=== PATIENT | female | born 1945 | race Caucasian/White ===

== ENCOUNTER 2020-11-30 17:20 | Inpatient (IN) | payer MEDICARE, OTHER ==
[~2020-11-30] VITALS: Ht 160 cm; Wt 78.1 kg
[2020-12-01 03:04] LABS: HEMOGLOBIN 9.2 gm/dl (12.3-15.3); RED BLOOD COUNT 3.23 M/UL (4.00-5.10); WHITE BLOOD COUNT 5.2 K/UL (4.5-11.0)
[2020-12-01] MEDS ORDERED: ATORVASTATIN CA80 MG PO (11:45)
[2020-12-01] MEDS ORDERED: HYDRALAZINE HCL50 MG PO (11:45)
[2020-12-01] MEDS ORDERED: OMEPRAZOLE40 MG PO (11:46)
[2020-12-01] MEDS ORDERED: PROZAC 20 MG CA20 MG PO (11:47)
[2020-12-01] MEDS ORDERED: TRAZODONE HCL100 MG PO (11:50)
[2020-12-01] MEDS ORDERED: ISOSORBIDE MON120 MG PO (11:51)
[2020-12-01] MEDS ORDERED: CREON DR 24,001 EACH PO (11:52)
[2020-12-01] MEDS ORDERED: LOSARTAN POTAS100 MG PO (11:52)
--- NOTE | 2020-12-01 23:36 | NUR ---
REPORT GIVEN TO [facility]. PATIENT STABLE AT THIS TIME. IV SITE IS CDI. OXYGEN INFUSING AT 4L VIA NC. JIMÉNEZ DRAINING TO BEDSIDE WITH CLEAR URINE. PATIENT TRANSFERRED BY BED WITH ASSIST OF STAFF.
[2020-12-02 04:19] LABS: HEMOGLOBIN 8.6 gm/dl (12.3-15.3); RED BLOOD COUNT 3.01 M/UL (4.00-5.10)
[2020-12-02 04:23] LABS: WHITE BLOOD COUNT 7.4 K/UL (4.5-11.0)
[2020-12-03 05:52] LABS: HEMOGLOBIN 8.9 gm/dl (12.3-15.3); RED BLOOD COUNT 3.16 M/UL (4.00-5.10); WHITE BLOOD COUNT 6.9 K/UL (4.5-11.0)
[2020-12-04 05:25] LABS: HEMOGLOBIN 8.7 gm/dl (12.3-15.3); RED BLOOD COUNT 3.01 M/UL (4.00-5.10); WHITE BLOOD COUNT 6.8 K/UL (4.5-11.0)
[2020-12-05 05:58] LABS: HEMOGLOBIN 8.5 gm/dl (12.3-15.3); WHITE BLOOD COUNT 6.1 K/UL (4.5-11.0)
[2020-12-05 11:14] LABS: HBSAG SCREEN Negative (Negative); HEP B CORE AB, TOT Negative (Negative); HEP C VIRUS AB <0.1 (0.0-0.9)
[2020-12-05 13:14] LABS: ANTISTREPTOLYSIN O AB 37.6 IU/mL (0.0-200.0); COMPLEMENT C3, SERUM 106 mg/dL (82-167); COMPLEMENT C4, SERUM 21 mg/dL (12-38)
[2020-12-05 15:14] LABS: ANTI-DSDNA ANTIBODIES <1 IU/mL (0-9)
[2020-12-05 16:14] LABS: A/G RATIO 1.1 (0.7-1.7); ALBUMIN 2.4 g/dL (2.9-4.4); ALPHA-1-GLOBULIN 0.2 g/dL (0.0-0.4); ALPHA-2-GLOBULIN 0.7 g/dL (0.4-1.0); ATYPICAL PANCA <1:20 titer (Neg:<1:20); BETA GLOBULIN 0.9 g/dL (0.7-1.3); CYTOPLASMIC (C-ANCA) <1:20 titer (Neg:<1:20); GAMMA GLOBULIN 0.6 g/dL (0.4-1.8); GLOBULIN, TOTAL 2.3 g/dL (2.2-3.9); IMMUNOGLOBULIN A, QN, SERUM 361 mg/dL (64-422); IMMUNOGLOBULIN G, QN, SERUM 594 mg/dL (586-1602); IMMUNOGLOBULIN M, QN, SERUM 63 mg/dL (26-217); M-SPIKE Not Observed g/dL (Not Observed); PERINUCLEAR (P-ANCA) <1:20 titer (Neg:<1:20); PROTEIN, TOTAL, SERUM 4.7 g/dL (6.0-8.5)
[2020-12-07 05:28] LABS: HEMOGLOBIN 7.8 gm/dl (12.3-15.3); RED BLOOD COUNT 2.76 M/UL (4.00-5.10); WHITE BLOOD COUNT 6.3 K/UL (4.5-11.0)
[2020-12-08 03:42] LABS: HEMOGLOBIN 8.5 gm/dl (12.3-15.3); RED BLOOD COUNT 2.89 M/UL (4.00-5.10); WHITE BLOOD COUNT 6.7 K/UL (4.5-11.0)
[2020-12-10 03:11] LABS: HEMOGLOBIN 8.1 gm/dl (12.3-15.3); RED BLOOD COUNT 2.86 M/UL (4.00-5.10); WHITE BLOOD COUNT 6.3 K/UL (4.5-11.0)
[2020-12-10 10:43] LABS: HEMOGLOBIN 8.9 gm/dl (12.3-15.3); RED BLOOD COUNT 3.11 M/UL (4.00-5.10)
[2020-12-10 10:49] LABS: WHITE BLOOD COUNT 8.5 K/UL (4.5-11.0)
[2020-12-11 06:03] LABS: HEMOGLOBIN 8.2 gm/dl (12.3-15.3); RED BLOOD COUNT 2.88 M/UL (4.00-5.10)
--- NOTE | 2020-12-11 15:46 | NUR ---
DOBUTAMINE CHANGED FROM 24.4ML/HR TO 12ML/HR. PT B/P PRESENTLY 180/63. MD CALLED WITH NO ANSWER, WILL CONTINUE TO CALL
[2020-12-12 03:41] LABS: HEMOGLOBIN 8.1 gm/dl (12.3-15.3); RED BLOOD COUNT 2.84 M/UL (4.00-5.10); WHITE BLOOD COUNT 6.1 K/UL (4.5-11.0)
[2020-12-15 03:03] LABS: HEMOGLOBIN 8.1 gm/dl (12.3-15.3); RED BLOOD COUNT 2.85 M/UL (4.00-5.10); WHITE BLOOD COUNT 5.4 K/UL (4.5-11.0)
--- NOTE | 2020-12-15 16:53 | NUR ---
12/15/2020 @ 0659 THE PATIENTS DAUGHTER (AL), HAD FELL IN THE FLOOR SEVERAL TIMES THORUGHOUT THE NIGHT AND FIRST THING WHEN I ARRIVED TO MY SHIFT. I HEARD A NOISE COMING FOR THE [facility]. WHEN I ENTERED THE ROOM THE DAUGTHER (AL) WAS GETTING UP OFF THE FLOOR AND STATED THAT "I FELL A COUPLE TIMES DURING THE NIGHT BUT THAT IS NORMAL BECAUSE I HAVE MS". THE PATIENT ALREADY HAD AN ICEPACK FROM THE NIGHT AND WAS ICING HER SHOULDER AND ELBOW. I ASKED THE PATIENT IF SHE WOULD LIKE TO GO TO THE ER BUT SHE STATED SHE DID NOT AND WAS OK. I CALLED [employer] SPONGE MAKING MACHINE OPERATOR (JANE GONZALEZ, SELVIN GIPSON) AND INFORMED THEM OF THE SITUTION. I WAS INFORMED TO TELL THE PATIENT SHE NEEDED TO GO HOME DUE TO HER FALLING AND HER SAFETY BEING OF CONCERN DUE TO HER NOT BEING A PATIENT OF THIS FACILITY. I ASKED MET[employer] SPONGE MAKING MACHINE OPERATOR IF THEY WOULD COME UP AND ADDRESS THAT WITH THE DAUGHTER (AL), TO WHICH WAS STATED I CAN ADDRESS THE PROBLEM AND IF SHE GOT UPSET THEY WOULD "HAVE MY BACK". I WAS ALSO INFORMED TO CALL THE PATIENTS FAMILY TO COME AND CASE MANAGEMENT COORDINATOR THE DAUGHTER (AL) AND IF THE FAMILY DID NOT ANSWER TO CALL THEM BACK.
--- NOTE | 2020-12-15 17:06 | NUR ---
12/15/2020 @ 0710 MYSELF AND THE NIGHTSHIFT RN WENT IN TO ADDRESS THE DAUGHTER ABOUT GOING HOME PER HOUSE SUPERVISORS REQUEST DUE TO HER FALLING SEVERAL TIMES AND HER BEING A SAFETY CONCERN. THE DAUGHTER STATED SHE FALLS ALL THE TIME AND SHE COULD NOT LEAVE HER MOTHER. WE INFORMED THE DAUGHTER SHE NEEDED FAMILY TO PICK HER UP AND WE COULD MAKE THAT PHONE CALL FOR HER. AGAIN, SHE STATED SHE WOULD NOT LEAVE. DURING THE CONVERSATION, THE DAUGHTER OPENED UP HER ICEPACK AND DUMPED ALL THE WATER DOWN HER SHIRT,LEGS, AND IN THE FLOOR. WHEN ASKED TO NOT OPEN TO ICEPACK AND DUMP WATER OUT, THE DAUGHTER STATED THE BAG WAS NEVER OPEN, SHE DIDNT OPEN IT AND DIDNT KNOW HOW THE WATER GOT IN THE FLOOR. I EXITED THE ROOM TO CALL THE DAUGHTERS FATHER TO COME PICK HER UP. THE FATHER NEVER ANSWERED WITH EITHER NUMBER NOR MADE AN ATTMEPT TO CALL BACK. WINCH DERRICK OPERATOR WAS CALLED BACK TO INFORM THEM THE FATHER DID NOT ANSWER AND THE PATIENT WAS NOT LEAVING. WINCH DERRICK OPERATOR SAID I DONE ALL I COULD DO AND THE DAUGHTER WAS NOT A PATIENT AND I COUDLNT WATCH HER ALL DAY AND THERE WAS NO RESOURCES FOR ANYONE ELSE TO WATCH THE DAUGHTER EITHER.
[2020-12-16 03:36] LABS: HEMOGLOBIN 8.7 gm/dl (12.3-15.3); RED BLOOD COUNT 3.06 M/UL (4.00-5.10); WHITE BLOOD COUNT 6.4 K/UL (4.5-11.0)
--- NOTE | 2020-12-16 15:35 | NUR ---
PHYSICAL THERAPY ATTEMPTED TO GET PATIENT OUT OF BED. SHE REFUSED AND STATES SHE WILL GET UP WHEN SHE FEELS LIKE IT. PATIENT FAMILY MEMBER AT BEDSIDE ENCOURAGED PATIENT TO GET UP, PATIENT YELLED AT HER SAYING SHE COULDNT MAKE HER.
[2020-12-17 02:59] LABS: RED BLOOD COUNT 3.1 M/UL (4.00-5.10); WHITE BLOOD COUNT 7.4 K/UL (4.5-11.0)
--- NOTE | 2020-12-17 16:54 | NUR ---
PT RECIEVED TEACHING FOR [employer]. PT AND FAMILY STATES THAT IT HELPED.
[2020-12-18] MEDS ORDERED: BUMETANIDE1 MG PO (10:21)
[2020-12-18] MEDS ORDERED: FERROUS SULFAT325 M2 PO (10:21)
[2020-12-18] MEDS ORDERED: MEGACE TAB 40 M40 MG PO (10:21)
[2020-12-18] MEDS ORDERED: ASPIRIN EC81 MG PO (10:21)
[2020-12-18] MEDS ORDERED: CARVEDILOL12.5 MG PO (10:21)
[2020-12-18] MEDS ORDERED: RANEXA500 MG PO (10:21)
== END 2020-12-18 15:23 | DRG 280 ==
LOC: PROG CARE 17:20 → MED SURG 4 17:20 → PROG CARE 12-11 14:33
PROVIDERS: Internal Medicine; Internal Medicine Cardiovascular Disease; Internal Medicine Infectious Disease; Internal Medicine Nephrology; Physician Assistant; ADMIT Internal Medicine
PROC: 5A09357 Assistance with Respiratory Ventilation, Less than 24 Consecutive Hours, Continuous Positive Airway Pressure (ICD-10-PCS; 2020-11-30)
PROC: B24BZZZ Ultrasonography of Heart with Aorta (ICD-10-PCS; 2020-12-02)
PROC: 4A023N7 Measurement of Cardiac Sampling and Pressure, Left Heart, Percutaneous Approach (ICD-10-PCS; principal; 2020-12-12)
PROC: B211YZZ Fluoroscopy of Multiple Coronary Arteries using Other Contrast (ICD-10-PCS; 2020-12-12)
PROC: 4A033BC Measurement of Arterial Pressure, Coronary, Percutaneous Approach (ICD-10-PCS; 2020-12-12)
DX: I21.4 Non-ST elevation (NSTEMI) myocardial infarction (principal); I50.23 Acute on chronic systolic (congestive) heart failure; J96.22 Acute and chronic respiratory failure with hypercapnia; J96.21 Acute and chronic respiratory failure with hypoxia; I13.0 Hypertensive heart and chronic kidney disease with heart failure and stage 1 through stage 4 chronic kidney disease, or unspecified chronic kidney disease; N17.9 Acute kidney failure, unspecified; I16.1 Hypertensive emergency; I47.2 Ventricular tachycardia; E87.2 Acidosis; J44.1 Chronic obstructive pulmonary disease with (acute) exacerbation; Z20.822 Contact with and (suspected) exposure to COVID-19; I25.119 Atherosclerotic heart disease of native coronary artery with unspecified angina pectoris; E83.42 Hypomagnesemia; N18.30 Chronic kidney disease, stage 3 unspecified; I25.5 Ischemic cardiomyopathy; D50.9 Iron deficiency anemia, unspecified; F32.9 Major depressive disorder, single episode, unspecified; E11.22 Type 2 diabetes mellitus with diabetic chronic kidney disease; R15.9 Full incontinence of feces; I44.7 Left bundle-branch block, unspecified; E66.01 Morbid (severe) obesity due to excess calories; D63.1 Anemia in chronic kidney disease; R32 Unspecified urinary incontinence; E78.5 Hyperlipidemia, unspecified; K21.9 Gastro-esophageal reflux disease without esophagitis; Z85.6 Personal history of leukemia; Z88.2 Allergy status to sulfonamides; Z88.0 Allergy status to penicillin; Z79.899 Other long term (current) drug therapy; Z90.710 Acquired absence of both cervix and uterus; Z87.891 Personal history of nicotine dependence; Z95.5 Presence of coronary angioplasty implant and graft; Z68.26 Body mass index [BMI] 26.0-26.9, adult
CPT/HCPCS: ECHO; 36415; 36600; 71045; 71250; 80048; 80053; 81001; 82436; 82550; 82553; 82570; 82728; 82784; 82803; 82962; 83520; 83540; 83550; 83735; 83880; 83883; 83935; 84100; 84133; 84155; 84156; 84165; 84300; 84439; 84443; 84484; 85025; 85027; 85045; 85652; 86038; 86060; 86140; 86160; 86162; 86225; 86256; 86334; 86704; 86706; 86708; 86803; 87340; 89050; 93005; 93306; 94640; 94660; 94664; 94760; 97110; 97110-GP-CQ; 97116-GP-CQ; 97162; 97166; C1769; C1894; J0360; J1205; J1250; J1644; J1756; J1940; J2250; J2270; J3475; J7030; J7040; J7070; Q5106; Q9965; U0002

== ENCOUNTER 2021-02-25 15:11 | Inpatient (IN) | payer MEDICARE, OTHER ==
[~2021-02-25] VITALS: Ht 157.5 cm; Wt 73.0 kg
[~2021-02-25 15:11] MED LIST: ASPIRIN EC81 MG PO; ATORVASTATIN CA80 MG PO; BUMETANIDE1 MG PO; CARVEDILOL12.5 MG PO; CREON DR 24,001 EACH PO; FERROUS SULFAT325 M2 PO; HYDRALAZINE HCL50 MG PO; ISOSORBIDE MON120 MG PO; LOSARTAN POTAS100 MG PO; MEGACE TAB 40 M40 MG PO; OMEPRAZOLE40 MG PO; PROZAC 20 MG CA20 MG PO; RANEXA500 MG PO; TRAZODONE HCL100 MG PO
[2021-02-25 17:43] LABS: HEMOGLOBIN 8.9 gm/dl (12.3-15.3); RED BLOOD COUNT 2.95 M/UL (4.00-5.10); WHITE BLOOD COUNT 7.5 K/UL (4.5-11.0)
--- NOTE | 2021-03-01 15:08 | NUR ---
DRESSING CHANGE PERFORMED ORDERED TO PATIENT'S BACK. PATIENT TOLERATED WELL. PINK, HEALTHY APPEARING TISSUE NOTED TO WOUND.
[2021-03-03] MEDS ORDERED: OMEPRAZOLE40 MG PO (15:19)
[2021-03-03] MEDS ORDERED: FERROUS SULFAT325 M2 PO (15:19)
[2021-03-05] MEDS ORDERED: DOXYCYCLINE HY100 MG PO (11:31)
--- NOTE | 2021-03-05 17:37 | NUR ---
CALLED REPORT TO [facility] AT 16:19. GAVE REPORT TO
== END 2021-03-05 17:14 | DRG 264 ==
LOC: ER1 15:11 → CDU 18:48 → MED SURG 4 18:48 → M/S 18:48 → MED SURG 4 03-01 18:07
PROVIDERS: Emergency Medicine; ADMIT Internal Medicine
PROC: 0JB70ZZ Excision of Back Subcutaneous Tissue and Fascia, Open Approach (ICD-10-PCS; principal; 2021-02-26)
DX: I96 Gangrene, not elsewhere classified (principal); L89.103 Pressure ulcer of unspecified part of back, stage 3; I50.42 Chronic combined systolic (congestive) and diastolic (congestive) heart failure; I13.0 Hypertensive heart and chronic kidney disease with heart failure and stage 1 through stage 4 chronic kidney disease, or unspecified chronic kidney disease; N17.9 Acute kidney failure, unspecified; I47.2 Ventricular tachycardia; E11.51 Type 2 diabetes mellitus with diabetic peripheral angiopathy without gangrene; Z20.822 Contact with and (suspected) exposure to COVID-19; L89.151 Pressure ulcer of sacral region, stage 1; Z79.899 Other long term (current) drug therapy; I25.10 Atherosclerotic heart disease of native coronary artery without angina pectoris; Z88.0 Allergy status to penicillin; Z87.891 Personal history of nicotine dependence; E88.09 Other disorders of plasma-protein metabolism, not elsewhere classified; I25.5 Ischemic cardiomyopathy; E11.22 Type 2 diabetes mellitus with diabetic chronic kidney disease; E11.65 Type 2 diabetes mellitus with hyperglycemia; Z98.61 Coronary angioplasty status; I44.7 Left bundle-branch block, unspecified; N18.30 Chronic kidney disease, stage 3 unspecified; D50.9 Iron deficiency anemia, unspecified; K52.9 Noninfective gastroenteritis and colitis, unspecified; M19.90 Unspecified osteoarthritis, unspecified site; R53.81 Other malaise; E78.5 Hyperlipidemia, unspecified; Z85.6 Personal history of leukemia; Z90.710 Acquired absence of both cervix and uterus; Z79.82 Long term (current) use of aspirin; Z83.3 Family history of diabetes mellitus; Z82.49 Family history of ischemic heart disease and other diseases of the circulatory system; I27.20 Pulmonary hypertension, unspecified; H91.90 Unspecified hearing loss, unspecified ear
CPT/HCPCS: 36415; 71045; 72128; 80048; 80053; 80202; 81001; 82550; 82553; 82962; 83036; 83540; 83550; 83735; 83874; 83880; 84439; 84443; 84484; 85018; 85025; 85610; 85730; 86140; 87040; 93005; 94760; 96374; 97110; 97110-GP-CQ; 97116-GP-CQ; 97162; 97166; 97530-GP-CQ; 99285; J0692; J1650; J3370; J7030; J7070; U0002

== ENCOUNTER 2021-07-08 16:52 | Inpatient (IN) | payer MEDICARE, OTHER ==
[~2021-07-08] VITALS: Ht 160 cm; Wt 76.2 kg
[~2021-07-08 16:52] MED LIST changes: +DOXYCYCLINE HY100 MG PO
[2021-07-09] MEDS ORDERED: NITROSTAT 0.40.4 MG SL (01:38)
[2021-07-09] MEDS ORDERED: MACROBID 100 M100 MG PO (01:39)
[2021-07-09] MEDS ORDERED: LANTUS100 UNIT/1 SQ (01:40)
[2021-07-09] MEDS ORDERED: HYDRALAZINE HCL50 MG PO (01:41)
[2021-07-09] MEDS ORDERED: TOVIAZ8 MG PO (01:42)
[2021-07-09] MEDS ORDERED: CHLORTHALIDONE25 MG PO (01:43)
[2021-07-09] MEDS ORDERED: COREG12.5 MG PO (01:44)
[2021-07-09] MEDS ORDERED: CREON DR 24,001 EACH PO (01:46)
[2021-07-09] MEDS ORDERED: NORVASC5 MG PO (01:49)
[2021-07-09 11:55] LABS: HEMOGLOBIN 8.3 gm/dl (12.3-15.3); RED BLOOD COUNT 2.79 M/UL (4.00-5.10); WHITE BLOOD COUNT 14.7 K/UL (4.5-11.0)
[2021-07-09] MEDS ORDERED: DONEPEZIL HCL5 MG PO (14:48)
[2021-07-09] MEDS ORDERED: DAILY VITE1 EACH PO (14:52)
[2021-07-09] MEDS ORDERED: ACIDOPHILUS-PE1 EACH PO (15:04)
[2021-07-09] MEDS ORDERED: ASPIRIN81 MG PO (15:08)
[2021-07-09] MEDS ORDERED: BUSPIRONE HCL5 MG PO (15:12)
[2021-07-09] MEDS ORDERED: MEGACE 400400 MG/10 PO (15:17)
[2021-07-09] MEDS ORDERED: REGULOID POWDE PO (15:20)
[2021-07-09] MEDS ORDERED: NOVOLOG 10100 UNITS/ SC (15:27)
[2021-07-09] MEDS ORDERED: LAXATIVE SUPPOS10 MG PR (15:30)
[2021-07-09] MEDS ORDERED: ZOFRAN4 MG PO (15:37)
[2021-07-09] MEDS ORDERED: ONDANSETRON4 MG/2 M2 IM (15:40)
[2021-07-09] MEDS ORDERED: SENNA8.6 MG PO (15:42)
[2021-07-09] MEDS ORDERED: TRAMADOL HCL50 MG PO (15:43)
[2021-07-10 00:47] LABS: HEMOGLOBIN 7.6 gm/dl (12.3-15.3); RED BLOOD COUNT 2.56 M/UL (4.00-5.10)
[2021-07-10 01:29] LABS: BUN/CREATININE RATIO 25 (0-10)
--- NOTE | 2021-07-10 02:20 | NUR ---
AT APPROXIMATELY 0030, PT APPEARED DIAPHORETIC AND BECAME DIFFICULT TO AWAKEN; BS CHECKED, RESULT 31. D50 ADMINISTERED, PT HEARTRATE DURING THIS TIME BEGAN TO DIP INTO THE 40'S AND DR RANKIN WAS NOTIFIED. LABS, ABG, EKG ORDERED, RESULTS IN EMR. PT'S DAUGHTER NOTIFIED OF PT CONDITION. BS RECHECK WAS 187, THEN 115 APPROX 1 HR POST-D50 ADMINISTRATION. EKG SHOWED SB WITH UNDERLYING ARRHYTHMIA. POTASSIUM AND MG CURRENTLY RUNNING. PT IS RESTING; APPEARS COMFORTABLE AND CAN BE AWAKENED RELATIVELY EASILY AT THIS TIME. PT'S DAUGHTER NOTIFIED THAT PT IS DOING A LITTLE BETTER. PT CONTINUES TO BE A FULL CODE PER DAUGHTER'S WISHES.
--- NOTE | 2021-07-10 11:59 | NUR ---
PATIENT SEEN BY HOSPITALIST AND PULMONOLGY, DECIDED TO SEND PATIENT TO THE UNIT.
--- NOTE | 2021-07-10 13:41 | NUR ---
PATIENT ADAN CHANGED AT 1219. CALLED BERNABE, NO ANSWER, CALLED JOÃO ORDERED A EKG. CALLED MANNY WITH CARDIOLOGY WHO ORDERED THE EKG BE SENT TO HER. AT 1236 THE EKG WAS FAXED TO MANNY AT [id number]. SHE CALLED BACK WITH ORDERS AT 1240. NEW MEDICATIONS WERE GIVEN, PATIENT TOLERATED WELL. ICU AWARE OF TRANSFER ORDERS, REPORT CALLED TO GAEL AT 1308. PATIENT TRANSFERRED TO UNIT AT 1330 TO ROOM 2114. PATIENT FAMILY AT BEDSIDE, PROCESS EXPLAINED TO FAMILY WHO VERBALIZE UNDERSTANDING.
[2021-07-10 14:49] LABS: RED BLOOD COUNT 3.04 M/UL (4.00-5.10); WHITE BLOOD COUNT 15.2 K/UL (4.5-11.0)
[2021-07-11 05:31] LABS: RED BLOOD COUNT 3.12 M/UL (4.00-5.10); WHITE BLOOD COUNT 16.5 K/UL (4.5-11.0)
[2021-07-12 03:06] LABS: HEMOGLOBIN 7.9 gm/dl (12.3-15.3)
[2021-07-12 03:07] LABS: RED BLOOD COUNT 2.75 M/UL (4.00-5.10); WHITE BLOOD COUNT 12.1 K/UL (4.5-11.0)
[2021-07-15 05:21] LABS: HEMOGLOBIN 9.3 gm/dl (12.3-15.3); RED BLOOD COUNT 3.22 M/UL (4.00-5.10); WHITE BLOOD COUNT 12.4 K/UL (4.5-11.0)
[2021-07-17 04:14] LABS: HEMOGLOBIN 9.3 gm/dl (12.3-15.3); RED BLOOD COUNT 3.18 M/UL (4.00-5.10)
[2021-07-18 04:00] LABS: HEMOGLOBIN 8.7 gm/dl (12.3-15.3); RED BLOOD COUNT 3.01 M/UL (4.00-5.10); WHITE BLOOD COUNT 14.7 K/UL (4.5-11.0)
[2021-07-19 04:06] LABS: RED BLOOD COUNT 2.77 M/UL (4.00-5.10); WHITE BLOOD COUNT 14.4 K/UL (4.5-11.0)
[2021-07-20 02:54] LABS: HEMOGLOBIN 8.4 gm/dl (12.3-15.3); RED BLOOD COUNT 2.9 M/UL (4.00-5.10); WHITE BLOOD COUNT 15.9 K/UL (4.5-11.0)
[2021-07-21 03:45] LABS: HEMOGLOBIN 8.2 gm/dl (12.3-15.3); RED BLOOD COUNT 2.81 M/UL (4.00-5.10); WHITE BLOOD COUNT 18.6 K/UL (4.5-11.0)
[2021-07-22 04:21] LABS: HEMOGLOBIN 7.7 gm/dl (12.3-15.3); RED BLOOD COUNT 2.67 M/UL (4.00-5.10); WHITE BLOOD COUNT 15.6 K/UL (4.5-11.0)
[2021-07-23 06:42] LABS: HEMOGLOBIN 7.7 gm/dl (12.3-15.3); RED BLOOD COUNT 2.81 M/UL (4.00-5.10)
[2021-07-23 06:47] LABS: WHITE BLOOD COUNT 11.2 K/UL (4.5-11.0)
[2021-07-24 03:46] LABS: HEMOGLOBIN 7.8 gm/dl (12.3-15.3); RED BLOOD COUNT 2.67 M/UL (4.00-5.10); WHITE BLOOD COUNT 9.2 K/UL (4.5-11.0)
[2021-07-25 04:50] LABS: HEMOGLOBIN 7.6 gm/dl (12.3-15.3); RED BLOOD COUNT 2.62 M/UL (4.00-5.10); WHITE BLOOD COUNT 7.7 K/UL (4.5-11.0)
[2021-07-25 09:13] LABS: CREATININE, URINE 40.7 mg/dL (Not Estab.)
--- NOTE | 2021-07-25 14:30 | NUR ---
RN NOTIFIED DR. CAMACHO OF PATIENT'S CONTINUING TO BLEED AT PEG TUBE INSERTION SITE EVEN AFTER BLOOD THINNER MEDICATIONS WERE HELD. MD ASSESSED AREA AND DECIDED TO INSERT STITCHES TO AREA. MD ORDERED RN TO OBTAIN LIDOCAINE FROM PHARMACY TO NUMB AREA FOR INSERTION OF STICHES. RN DID THIS AND CONTINUED TO ASSIST MD WITH PROCEDURE. MD PLACED TWO STITCHES TO PEG TUBE INSERTION SITE. BLEEDING NOTED TO BE LESSENED, BUT STILL PERSISTED. MD ORDERED RN TO REAPPLY DRAINAGE SPONGE TO AREA NEEDED BUT TO NOTIFY HIM IF BLEEDING WORSENED. RN NOTIFIED ONCOMING NURSE IN REPORT. NO S/SX OF DISTRESS OR DISCOMFORT. BED LOCKED AND LOW.
[2021-07-26 06:43] LABS: WHITE BLOOD COUNT 8.4 K/UL (4.5-11.0)
[2021-07-26 06:50] LABS: RED BLOOD COUNT 2.27 M/UL (4.00-5.10)
[2021-07-26 06:52] LABS: HEMOGLOBIN 6.8 gm/dl (12.3-15.3)
--- NOTE | 2021-07-26 15:36 | NUR ---
1530 Several attempts made to reach patient's daughter or to obtain consent for patient to receive blood without success. Left message for daughter to call us back.
[2021-07-27 08:27] LABS: WHITE BLOOD COUNT 8.2 K/UL (4.5-11.0)
[2021-07-27 08:41] LABS: RED BLOOD COUNT 3.12 M/UL (4.00-5.10)
[2021-07-28 06:41] LABS: HEMOGLOBIN 8.3 gm/dl (12.3-15.3); RED BLOOD COUNT 3.01 M/UL (4.00-5.10); WHITE BLOOD COUNT 8.1 K/UL (4.5-11.0)
[2021-07-28] MEDS ORDERED: AMIODARONE HCL200 MG PO (10:28)
[2021-07-28] MEDS ORDERED: ACETAMINOPHEN500 MG PO (10:28)
[2021-07-28] MEDS ORDERED: ELIQUIS 5 MG TAB5 MG PO (10:28)
[2021-07-28] MEDS ORDERED: ALDACTONE 25MG25 MG PO (10:28)
[2021-07-28] MEDS ORDERED: FUROSEMIDE40 MG PO (10:28)
[2021-07-29 06:19] LABS: HEMOGLOBIN 8.4 gm/dl (12.3-15.3); RED BLOOD COUNT 2.83 M/UL (4.00-5.10); WHITE BLOOD COUNT 8.1 K/UL (4.5-11.0)
== END 2021-07-29 20:20 | DRG 177 ==
LOC: PROG CARE 16:52 → CCU 07-09 01:20 → PROG CARE 07-09 01:20 → MED SURG 4 07-09 01:20 → CDU 07-09 01:20 → PROG CARE 07-09 01:30 → CCU 07-10 13:30 → PROG CARE 07-11 10:02 → MED SURG 4 07-22 16:20
PROVIDERS: Internal Medicine; Internal Medicine Nephrology; Internal Medicine Pulmonary Disease; Physician Assistant; Surgery; ADMIT Internal Medicine
PROC: 02HV33Z Insertion of Infusion Device into Superior Vena Cava, Percutaneous Approach (ICD-10-PCS; 2021-07-09)
PROC: B548ZZA Ultrasonography of Superior Vena Cava, Guidance (ICD-10-PCS; 2021-07-09)
PROC: 5A09457 Assistance with Respiratory Ventilation, 24-96 Consecutive Hours, Continuous Positive Airway Pressure (ICD-10-PCS; 2021-07-09)
PROC: B24BZZZ Ultrasonography of Heart with Aorta (ICD-10-PCS; 2021-07-11)
PROC: 5A0945A Assistance with Respiratory Ventilation, 24-96 Consecutive Hours, High Flow/Velocity Cannula (ICD-10-PCS; 2021-07-11)
PROC: 3E0336Z Introduction of Nutritional Substance into Peripheral Vein, Percutaneous Approach (ICD-10-PCS; 2021-07-22)
PROC: 0DH63UZ Insertion of Feeding Device into Stomach, Percutaneous Approach (ICD-10-PCS; principal; 2021-07-22 08:08)
PROC: 30233N1 Transfusion of Nonautologous Red Blood Cells into Peripheral Vein, Percutaneous Approach (ICD-10-PCS; 2021-07-26)
DX: J69.0 Pneumonitis due to inhalation of food and vomit (principal); J96.01 Acute respiratory failure with hypoxia; I50.23 Acute on chronic systolic (congestive) heart failure; G93.41 Metabolic encephalopathy; A41.9 Sepsis, unspecified organism; N17.9 Acute kidney failure, unspecified; I13.0 Hypertensive heart and chronic kidney disease with heart failure and stage 1 through stage 4 chronic kidney disease, or unspecified chronic kidney disease; I47.1 Supraventricular tachycardia; E87.0 Hyperosmolality and hypernatremia; E87.3 Alkalosis; E46 Unspecified protein-calorie malnutrition; Z66 Do not resuscitate; Z51.5 Encounter for palliative care; Z20.822 Contact with and (suspected) exposure to COVID-19; I25.10 Atherosclerotic heart disease of native coronary artery without angina pectoris; G47.00 Insomnia, unspecified; E87.70 Fluid overload, unspecified; E87.6 Hypokalemia; E83.42 Hypomagnesemia; I08.3 Combined rheumatic disorders of mitral, aortic and tricuspid valves; E86.0 Dehydration; E16.2 Hypoglycemia, unspecified; F32.A Depression, unspecified; K94.21 Gastrostomy hemorrhage; Y83.8 Other surgical procedures as the cause of abnormal reaction of the patient, or of later complication, without mention of misadventure at the time of the procedure; R13.10 Dysphagia, unspecified; I44.7 Left bundle-branch block, unspecified; K44.9 Diaphragmatic hernia without obstruction or gangrene; G47.30 Sleep apnea, unspecified; E78.5 Hyperlipidemia, unspecified; N18.30 Chronic kidney disease, stage 3 unspecified; D63.1 Anemia in chronic kidney disease; L89.152 Pressure ulcer of sacral region, stage 2; I27.20 Pulmonary hypertension, unspecified; R53.81 Other malaise; I25.5 Ischemic cardiomyopathy; F03.90 Unspecified dementia, unspecified severity, without behavioral disturbance, psychotic disturbance, mood disturbance, and anxiety; I48.0 Paroxysmal atrial fibrillation; Z79.01 Long term (current) use of anticoagulants; Z79.82 Long term (current) use of aspirin; Z74.01 Bed confinement status; Z99.81 Dependence on supplemental oxygen; Z88.0 Allergy status to penicillin; Z87.01 Personal history of pneumonia (recurrent); Z98.61 Coronary angioplasty status; Z68.29 Body mass index [BMI] 29.0-29.9, adult; Z79.4 Long term (current) use of insulin
CPT/HCPCS: ECHO; 31500; 36415; 36430; 36600; 70551; 71045; 74230; 80048; 80053; 80158; 80202; 81001; 82043; 82140; 82533; 82550; 82553; 82570; 82607; 82728; 82746; 82803; 82962; 83036; 83540; 83550; 83735; 83874; 83880; 84100; 84132; 84156; 84439; 84443; 84484; 85018; 85025; 85027; 86140; 86850; 86900; 86901; 86920; 92526; 92610; 92611-GN; 93005; 93306; 94660; 94760; 97110-GP-CQ; 97161; 97530; 97530-GP-CQ; A6212; C1751; J0360; J0692; J1160; J1205; J1335; J1650; J1756; J1940; J2001; J2060; J2270; J2704; J2997; J3370; J3475; J3480; J7040; J7050; J7070; P9016; U0002

== ENCOUNTER → 2021-10-17 | Outpatient (CLI) | payer MEDICARE, OTHER ==
[~2021-10-17] MED LIST changes: +ACETAMINOPHEN500 MG PO; +ACIDOPHILUS-PE1 EACH PO; +ALDACTONE 25MG25 MG PO; +AMIODARONE HCL200 MG PO; +ASPIRIN81 MG PO; +BUSPIRONE HCL5 MG PO; +CHLORTHALIDONE25 MG PO; +COREG12.5 MG PO; +DAILY VITE1 EACH PO; +DONEPEZIL HCL5 MG PO; +ELIQUIS 5 MG TAB5 MG PO; +FUROSEMIDE40 MG PO; +LANTUS100 UNIT/1 SQ; +LAXATIVE SUPPOS10 MG PR; +MACROBID 100 M100 MG PO; +MEGACE 400400 MG/10 PO; +NITROSTAT 0.40.4 MG SL; +NORVASC5 MG PO; +NOVOLOG 10100 UNITS/ SC; +ONDANSETRON4 MG/2 M2 IM; +REGULOID POWDE PO; +SENNA8.6 MG PO; +TOVIAZ8 MG PO; +TRAMADOL HCL50 MG PO; +ZOFRAN4 MG PO
== END ==
LOC: HEART CORB 10-10 10:30
DX: I11.0 Hypertensive heart disease with heart failure (principal); I50.22 Chronic systolic (congestive) heart failure; I42.8 Other cardiomyopathies; I08.1 Rheumatic disorders of both mitral and tricuspid valves
CPT/HCPCS: 93306